=== PATIENT | male | born 1960 | race Caucasian/White ===

== ENCOUNTER 2018-10-15 06:25 | Emergency (ER) | payer BC, OTHER ==
[~2018-10-15] VITALS: Ht 170.2 cm; Wt 61.2 kg
[2018-10-15 06:30] VITALS: BP 145/103
[2018-10-15] MEDS: KETOROLAC 60 MG/2 ML VIAL IM ONE (07:07)
[2018-10-15] MEDS: DICYCLOMINE HCL LIQUID 20 MG, ALUMINUM HYD/MAG/SIMETHICONE 30 ML, LIDOCAINE VISCOUS 2% ... PO ONE ×3 (07:08)
[2018-10-15 08:10] LABS: BASOPHILS % (AUTO) 0.2 % (0.0-2.0); EOSINOPHILS # (AUTO) 0.2 K/uL (0-0.4); EOSINOPHILS % (AUTO) 1.2 % (0.0-4.0); HEMOGLOBIN 14.2 g/dL (12.0-18.0); LYMPHOCYTES # (AUTO) 1.5 K/uL (2.0-11.5); LYMPHOCYTES % (AUTO) 10.2 % (20.5-51.1); MEAN CORPUSCULAR HEMOGLOBIN 31 pg (27-31); MEAN CORPUSCULAR HGB CONC 33 g/dL (33-37); MEAN CORPUSCULAR VOLUME 94.6 fL (80-94); MONOCYTES # (AUTO) 0.8 K/uL (0.8-1.0); MONOCYTES % (AUTO) 5.7 % (1.7-9.3); NEUTROPHILS % (AUTO) 82.7 % (42.2-75.2); PLATELET COUNT (AUTO) 304 K/uL (140-450); RED BLOOD CELL COUNT(AUTO) 4.54 MIL/uL (4.20-6.10); RED CELL DISTRIBUTION WIDTH 13.9 % (11.6-13.7); WHITE BLOOD COUNT (AUTO) 14.5 K/uL (4.8-10.8)
[2018-10-15 08:25] LABS: ALBUMIN 3.6 g/dL (3.4-5.0); ANION GAP 12.5 (8-16); CARBON DIOXIDE 25.6 mmol/L (21-32); CREATININE 0.9 mg/dL (0.7-1.3); POTASSIUM 4.1 mmol/L (3.5-5.1); TOTAL BILIRUBIN 1.2 mg/dL (0.0-1.0)
[2018-10-15 09:32] VITALS: BP 116/83
[2018-10-15 09:58] LABS: APPEARANCE,URINE CLEAR (CLEAR); BILIRUBIN,URINE NEGATIVE (NEGATIVE); BLOOD, URINE NEGATIVE (NEGATIVE); COLOR,URINE YELLOW (YELLOW); LEUKOCYTE ESTERASE ,URINE NEGATIVE (NEGATIVE); NITRITE, URINE NEGATIVE (NEGATIVE); PH,URINE >=9.0 (5.0-9.0); UGLUCOSE NEGATIVE (NEGATIVE)
== END 2018-10-15 09:33 | disposition home or self-care (01) ==
LOC: MED 06:25
DX: R10.13 Epigastric pain (principal); G89.29 Other chronic pain; M54.9 Dorsalgia, unspecified; F17.200 Nicotine dependence, unspecified, uncomplicated
CPT/HCPCS: 36415; 74176; 80053; 81003; 82150; 83690; 85025; 96372; 99284; J1885

== ENCOUNTER 2019-03-26 09:28 | Inpatient (IN) | payer OTHER ==
[~2019-03-26] VITALS: Ht 167.6 cm; Wt 61.7 kg
[2019-03-26 09:31] VITALS: BP 121/103
--- NOTE | 2019-03-26 09:38 | NUR ---
PT AMBULATES BACK TO THE LOBBY
--- NOTE | 2019-03-26 09:44 | NUR ---
PT AMBULATED TO BED 2
--- NOTE | 2019-03-26 09:52 | NUR ---
PATIENT PRESENTS TO ED WITH C/O NAUSEA, VOMITING, FEVER AND EPIGASTRIC PAIN X TODAY. PATIENT STATES PAIN OF 10/10 AT THIS TIME; VSS; LBM 03/25/19. ORAL TEMP 98.1 AT THIS TIME. PATIENT POSITIONED FOR COMFORT; HOB ELEVATED; BEDRAILS UP X1; BED DOWN. PENDING ER MD EVALUATION.
[2019-03-26] MEDS ORDERED: NACL 0.9% 500 ML IV ONE (10:54)
[2019-03-26] MEDS ORDERED: ONDANSETRON 4 MG/2 ML VIAL IVP ONE (10:55)
[2019-03-26] MEDS ORDERED: KETOROLAC 30 MG/ML VIAL IVP ONE (10:55)
[2019-03-26 11:07] LABS: APPEARANCE,URINE CLEAR (CLEAR); BILIRUBIN,URINE NEGATIVE (NEGATIVE); BLOOD, URINE NEGATIVE (NEGATIVE); COLOR,URINE YELLOW (YELLOW); LEUKOCYTE ESTERASE ,URINE NEGATIVE (NEGATIVE); NITRITE, URINE NEGATIVE (NEGATIVE); UGLUCOSE NEGATIVE (NEGATIVE)
[2019-03-26 11:16] LABS: BASOPHILS % (AUTO) 0.2 % (0.0-2.0); EOSINOPHILS % (AUTO) 0.4 % (0.0-4.0); HEMATOCRIT 40.9 % (36-52); HEMOGLOBIN 13.8 g/dL (12.0-18.0); LYMPHOCYTES # (AUTO) 1.5 K/uL (2.0-11.5); LYMPHOCYTES % (AUTO) 12.2 % (20.5-51.1); MEAN CORPUSCULAR HEMOGLOBIN 32 pg (27-31); MEAN CORPUSCULAR HGB CONC 34 g/dL (33-37); MEAN CORPUSCULAR VOLUME 95.2 fL (80-94); MONOCYTES # (AUTO) 0.5 K/uL (0.8-1.0); NEUTROPHILS # (AUTO) 10.5 K/uL (1.8-7.7); NEUTROPHILS % (AUTO) 83.2 % (42.2-75.2); PLATELET COUNT (AUTO) 310 K/uL (140-450); RED BLOOD CELL COUNT(AUTO) 4.29 MIL/uL (4.20-6.10); RED CELL DISTRIBUTION WIDTH 13.5 % (11.6-13.7); WHITE BLOOD COUNT (AUTO) 12.6 K/uL (4.8-10.8)
[2019-03-26 11:22] LABS: ANION GAP 9.6 (8-16); CARBON DIOXIDE 29.7 mmol/L (21-32); CREATININE 0.9 mg/dL (0.7-1.3); POTASSIUM 3.3 mmol/L (3.5-5.1)
[2019-03-26 11:28] LABS: ALBUMIN 3.7 g/dL (3.4-5.0); TOTAL BILIRUBIN 0.6 mg/dL (0.0-1.0)
[2019-03-26] MEDS ORDERED: BACL10TA4 PO (12:40)
--- NOTE | 2019-03-26 12:42 | NUR ---
PT IS RESTING COMFORTABLY. DENIES ANY PAIN AT THIS TIME. PT IS PENDING ADMISSION. VSS.
[2019-03-26 13:00] VITALS: BP 105/78
[2019-03-26] MEDS ORDERED: MORPHINE SULFATE 4 MG/ML SYR IVP PRN (13:30)
[2019-03-26] MEDS ORDERED: ONDANSETRON 4 MG/2 ML VIAL IVP PRN (13:30)
[2019-03-26] MEDS ORDERED: LORazepam 2 MG/ML VIAL IVP PRN (13:30)
[2019-03-26] MEDS ORDERED: ACETAMINOPHEN 325 MG TAB PO PRN (13:30)
[2019-03-26] MEDS ORDERED: ALBUTEROL 0.083% 2.5 MG/3 ML NEBU INH PRN (13:30)
[2019-03-26] MEDS ORDERED: POTASSIUM CHL 40 MEQ/ D5-1/2NS 1,000 ML IV SCH (13:30)
[2019-03-26] MEDS ORDERED: DULO20EC PO (13:45)
--- NOTE | 2019-03-26 13:55 | NUR ---
RECEIVED PT FROM ED NURSE WAYNE. PT IS AWAKE AND ALERT, IN NO ACUTE DISTRESS, NO SOB. PT IS C/O MODERATE PAIN IN THE R RIB AREA; WILL MEDICATE SOON APPROPRIATE. PT IS ON ROOM AIR, SKIN IS INTACT. PT IS AMBULATORY. IV SITE IS ON THE R AC, 22 G, INFUSING NS 100 ML/HR. MRSA NARES SWABBED, WILL TAKE TO LAB. PT IS CURRENTLY NPO FOR AN UPCOMING HIDA SCAN. CALL LIGHT GIVEN WITHIN REACH. WILL CONTINUE TO MONITOR.
--- NOTE | 2019-03-26 14:02 | NUR ---
Patient admitted to care of Dr. Jackson . Admited to Telemetry. To room 106A. Belongings list completed. Report to MELVI Garza. Pt in stable condition.
--- NOTE | 2019-03-26 14:27 | NUR ---
TALKED WITH DR ZAMAN ON THE PHONE ABOUT NON-NARCOTIC PAIN MEDS FOR PT; DR ZAMAN ORDERED 30 MG IV TORADOL Q8H PRN. PT IS SCHEDULED TO HAVE A HIDA SCAN LATER THIS AFTERNOON, AND CANNOT HAVE ANY NARCOTIC ANALGESICS. PT IS CURRENTLY NPO FOR THE HIDA SCAN.
[2019-03-26] MEDS: KETOROLAC 30 MG/ML VIAL IVP PRN (15:08)
[2019-03-26] MEDS: PIPER/TAZO 3.375GM/D5W PREMIX 50 ML IV SCH ×2 (15:08→20:12)
--- NOTE | 2019-03-26 16:18 | NUR ---
PT TAKEN OFF UNIT TO HIDA SCAN.
--- NOTE | 2019-03-26 17:35 | NUR ---
PT IS BACK IN THE ROOM FROM THE HIDA SCAN.
--- NOTE | 2019-03-26 18:15 | NUR ---
DR MCNEILL NOTIFIED OF THE RESULTS OF PT'S HIDA SCAN PER HIS REQUEST. HE SAYS HE WILL CALL BACK AGAIN LATER.
--- NOTE | 2019-03-26 19:10 | NUR ---
PT ENDORSED TO OIL WELL CABLE TOOL OPERATOR NURSE IN STABLE CONDITION.
--- NOTE | 2019-03-26 19:11 | NUR ---
REPORT RECEIVED FROM AM NURSE AT BEDSIDE. PT IN STABLE CONDITION. AAOX4. INTRODUCED SELF TO PT. BOARD UPDATED. PT HAS COMPLAINTS OF 7/10 ABDOMINAL PAIN. WILL MEDICATE. NO SOB. AFEBRILE. IV SITE L AC 22G RUNNING D5 1/2NS WITH KCL 40MEQ@100ML/HR PATENT AND INTACT. SKIN WARM, DRY, AND INTACT WITH NO OPEN WOUNDS. PT IS AMBULATORY. BED LOCKED IN LOW POSITION. CALL [place] WITHIN REACH. SAFETY PRECAUTIONS IN PLACE. ALL NEEDS MET AT THIS TIME.
--- NOTE | 2019-03-26 19:28 | NUR ---
MORPHINE GIVEN FOR 7/10 ABDOMINAL PAIN. PT TOLERATED WELL.
[2019-03-26 20:00] VITALS: BP 108/79
[2019-03-26] MEDS ORDERED: PIPERACILLIN/TAZOBACTAM 3.375 GM in DEXTROSE 5% 50 ML IV SCH (21:00)
--- NOTE | 2019-03-26 22:10 | NUR ---
IGNACIA HUNG AT THIS TIME.
--- NOTE | 2019-03-26 22:30 | NUR ---
PT SITTING UP IN BED WATCHING TV. NO C/O DISCOMFORT. ALL NEEDS ATTENDED TO. WILL CONTINUE TO MONITOR.
[2019-03-27] VITALS: BP 91/60
--- NOTE | 2019-03-27 | NUR ---
DR. MCNEILL CALLED FOR INFORMATION ON PT STATUS AND LAB RESULTS. NOTIFIED OF RESULTS OF HIDA SCAN AND GALLBLADDER SCAN. HE SPOKE WITH THE PATIENT ABOUT HAVING A PROCEDURE ON THE GALLBLADDER. PT AGREED TO DR. MCNEILL'S SUGGESTION. WILL PUT IN NEW ORDERS.
--- NOTE | 2019-03-27 00:10 | NUR ---
CONSENT OBTAINED. TOLD PT DR. MCNEILL WILL BE IN TOMORROW TO EXPLAIN RISKS AND BENEFITS OF THE PROCEDURE.
[2019-03-27] MEDS: MORPHINE SULFATE 2 MG/ML SYR IVP PRN ×3 (01:13→19:08)
--- NOTE | 2019-03-27 01:13 | NUR ---
PT HAS 7/10 ABDOMINAL PAIN. MORPHINE GIVEN. PT BLOOD PRESSURE WAS 91/60. ONLY 2MG OF MORPHINE GIVEN INSTEAD OF 4MG DUE TO POSSIBILITY OF DECREASING BLOOD PRESSURE AND MAP. PT TOLERATED WELL. WILL CONTINUE TO MONITOR.
--- NOTE | 2019-03-27 03:10 | NUR ---
PT SLEEPING COMFORTABLY IN BED. NO S/S OF DISTRESS NOTED. RESPIRATIONS EVEN, UNLABORED, AND WNL. WILL CONTINUE TO MONITOR.
[2019-03-27 04:00] VITALS: BP 84/54
--- NOTE | 2019-03-27 04:00 | NUR ---
VITALS TAKEN. PT AWAKE IN BED, NO S/S OF DISTRESS. SAFETY PRECAUTIONS IN PLACE, CALL LIGHT WITHIN REACH. WILL CONTINUE TO MONITOR.
[2019-03-27 04:11] LABS: BASOPHILS % (AUTO) 0.4 % (0.0-2.0); EOSINOPHILS # (AUTO) 0.2 K/uL (0-0.4); EOSINOPHILS % (AUTO) 3.1 % (0.0-4.0); HEMOGLOBIN 12.8 g/dL (12.0-18.0); LYMPHOCYTES # (AUTO) 2.6 K/uL (2.0-11.5); LYMPHOCYTES % (AUTO) 38.1 % (20.5-51.1); MEAN CORPUSCULAR HEMOGLOBIN 32 pg (27-31); MEAN CORPUSCULAR HGB CONC 34 g/dL (33-37); MEAN CORPUSCULAR VOLUME 96.1 fL (80-94); MONOCYTES # (AUTO) 0.4 K/uL (0.8-1.0); MONOCYTES % (AUTO) 6.4 % (1.7-9.3); NEUTROPHILS # (AUTO) 3.6 K/uL (1.8-7.7); PLATELET COUNT (AUTO) 283 K/uL (140-450); RED BLOOD CELL COUNT(AUTO) 3.96 MIL/uL (4.20-6.10); RED CELL DISTRIBUTION WIDTH 13.7 % (11.6-13.7); WHITE BLOOD COUNT (AUTO) 6.8 K/uL (4.8-10.8)
[2019-03-27] MEDS: KETOROLAC 30 MG/ML VIAL IVP PRN (04:32)
--- NOTE | 2019-03-27 04:32 | NUR ---
TORADOL GIVEN FOR ABDOMINAL PAIN AT THIS TIME.
[2019-03-27 04:36] LABS: ALBUMIN 3.1 g/dL (3.4-5.0); ANION GAP 11.7 (8-16); CARBON DIOXIDE 25.2 mmol/L (21-32); CREATININE 0.9 mg/dL (0.7-1.3); MAGNESIUM 1.8 mg/dL (1.8-2.4); POTASSIUM 3.9 mmol/L (3.5-5.1); TOTAL BILIRUBIN 1.3 mg/dL (0.0-1.0)
[2019-03-27] MEDS: PIPER/TAZO 3.375GM/D5W PREMIX 50 ML IV SCH ×3 (05:11→21:12)
--- NOTE | 2019-03-27 05:11 | NUR ---
IGNACIA HUNG AT THIS TIME.
--- NOTE | 2019-03-27 06:50 | NUR ---
PT WENT TO RADIOLOGY FOR CT OF ABD/PELVIS AND CXR.
--- NOTE | 2019-03-27 07:00 | NUR ---
PT RETURNED TO THE FLOOR.
--- NOTE | 2019-03-27 07:19 | NUR ---
REPORT GIVEN TO AM NURSE AT BEDSIDE. PT IN STABLE CONDITION.
--- NOTE | 2019-03-27 07:20 | NUR ---
RECEIVED ENDORSEMENT FROM HEEL SEAT FITTER MACHINE NURSE. PT IS AAOX4. RESPIRATIONS ARE EVEN AND UNLABORED ON ROOM AIR. LEFT AC IV IS INTACT, PATENT, AND INFUSING IVF. PT DENIES ANY PAIN AT THIS TIME. PLAN OF CARE WAS REVIEWED WITH PT. PT VERBALIZED UNDERSTANDING. SAFETY MEASURES IN PLACE, CALL LIGHT WITHIN REACH. WILL CONTINUE TO MONITOR.
[2019-03-27 07:55] LABS: PROTHROMBIN TIME 9.9 secs (10.8-13.4)
[2019-03-27 08:00] VITALS: BP 85/50
--- NOTE | 2019-03-27 08:09 | NUR ---
PATIENT HAS BEEN SCREENED AND CATEGORIZED LOW NUTRITION RISK. PATIENT WILL BE SEEN WITHIN 7 DAYS OF ADMISSION. 04/02/[address]
[2019-03-27] MEDS: ENOXAPARIN 40 MG/0.4 ML SYR SUBQ SCH (08:40)
--- NOTE | 2019-03-27 08:40 | NUR ---
ENOXAPARIN WAS HELD. PATIENT SCHEDULED FOR SURGERY TODAY.
[2019-03-27] MEDS ORDERED: NACL 0.9% 1,000 ML IV SCH (09:00)
--- NOTE | 2019-03-27 09:10 | NUR ---
ADMINISTERED NS FLUID BOLUS PER MD ORDER FOR BP OF 85/50 HR OF 56. PATIENT C/O 8/10 PAIN TO ABDOMINAL AREA. ADMINISTERED PRN MORPHINE IVP. PATIENT STATED FEELING IMMEDIATE RELIEF. WILL CONTINUE TO MONITOR.
--- NOTE | 2019-03-27 11:46 | NUR ---
FOLLOW UP APPOINTMENT FOR PATIENT: [facility] MD: OSMAN GELLER ADDRESS: [id number] [place] [address] PHONE: APPOINTMENT DATE AND TIME: 04/01/2019 AT 10AM Addendum: 03/27/19 at 1618 by Antoinette Carrera CM ATTEMPTED TO MEET WITH PATIENT AT BEDSIDE, HOWEVER PATIENT IS CURRENTLY AT OPERATING ROOM. CM GAVE PATIENT'S NURSE ( TODD) PATIENT's FOLLOW UP APPOINTMENT WITH PCP. PATIENT's NURSE STATED HE WILL GIVE THE APPOINTMENT TO THE PATIENT WHEN HE RETURNS BACK FROM SURGERY.
--- NOTE | 2019-03-27 11:50 | NUR ---
PATIENT RESTING IN BED. NO SIGNS OF DISTRESS NOTED. DENIES ANY PAIN AT THIS TIME. WILL CONTINUE TO MONITOR.
[2019-03-27 12:00] VITALS: BP 83/58
--- NOTE | 2019-03-27 14:10 | NUR ---
PATIENT SLEEPING, EASILY AROUSABLE. DENIES PAIN AT THIS TIME. WILL CONTINUE TO MONITOR.
[2019-03-27 16:00] VITALS: BP 102/72
--- NOTE | 2019-03-27 16:01 | NUR ---
OR NURSES ON UNIT READY TO TAKE PATIENT DOWN FOR CHOLECYSTECTOMY. WILL CONTINUE TO MONITOR WHEN PATIENT RETURNS ON UNIT.
[2019-03-27] MEDS ORDERED: BUPIVACAINE-MPF/EPI 0.25% 30 ML VIAL INJ ONE (16:20)
[2019-03-27] MEDS ORDERED: SUCCINYLCHOLINE CHLORIDE 200 MG/10 ML VIAL IVP ONE (16:22)
[2019-03-27] MEDS ORDERED: NEOSTIGMINE 1:1000 10 MG/10 ML VIAL ONE (16:22)
[2019-03-27] MEDS ORDERED: ONDANSETRON 4 MG/2 ML VIAL ONE (16:22)
[2019-03-27] MEDS ORDERED: ROCURONIUM 50 MG/5 ML VIAL IV ONE (16:22)
[2019-03-27] MEDS ORDERED: PROPOFOL 200 MG/20 ML VIAL IV ONE (16:22)
[2019-03-27] MEDS ORDERED: DESFLURANE 240 ML BTL INH ONE (16:22)
[2019-03-27] MEDS ORDERED: GLYCOPYRROLATE 0.2 MG/ML VIAL ONE (16:22)
[2019-03-27] MEDS ORDERED: KETOROLAC 30 MG/ML VIAL ONE (16:22)
[2019-03-27] MEDS ORDERED: DEXAMETHASONE 4 MG/ML VIAL ONE (16:22)
[2019-03-27] MEDS ORDERED: fentaNYL 0.05 MG/ML VIAL ONE (16:33)
[2019-03-27] MEDS ORDERED: HYDROmorphone PFS 2 MG/ML SYR ONE (16:33)
[2019-03-27] MEDS ORDERED: ceFAZolin 1,000 MG VIAL ONE (16:37)
[2019-03-27] MEDS ORDERED: ONDANSETRON 4 MG/2 ML VIAL IVP PRN (16:50)
[2019-03-27] MEDS ORDERED: HYDROmorphone 1 MG/ML AMP IVP PRN (16:50)
[2019-03-27 18:30] VITALS: BP 96/65
--- NOTE | 2019-03-27 18:30 | NUR ---
PATIENT BACK ON MST UNIT FROM OR. NO DISTRESS NOTED. V/S STABLE. WILL CONTINUE TO MONITOR.
--- NOTE | 2019-03-27 19:30 | NUR ---
GAVE ENDORSEMENT TO LIGHT RAIL SIGNAL TECHNICIAN NURSE. PATIENT IS STABLE.
--- NOTE | 2019-03-27 19:31 | NUR ---
RECEIVED BEDSIDE REPORT FROM NOEL BROOKS. PT A/O X4. ABLE TO MAKE NEEDS KNOWN. ROOM AIR. NO SIGNS OF DISTRESS. AMBULATES. STEADY GAIT. 4 INCISIONS DRESSINGS CLEAN, DRY, INTACT, NO DRAINAGE NOTED. L AC 22G. NOT CURRENTLY RUNNING ANYTHING. CLEAR LIQUID DIET. ALLERGY BAND TO PEACHES-FOOD. BED IN LOW POSITION. CALL LIGHT WITHIN REACH.
--- NOTE | 2019-03-27 20:00 | NUR ---
LUCIA GOLD (SISTER) CALLED TO ASK IF PT WAS BACK FROM SURGERY.
--- NOTE | 2019-03-27 21:18 | NUR ---
ADMINISTERED MEDS SCHEDULED. ZOSYN @100ML/HR. FLUSHED LINE WHEN CONNECTED. TOLERATED WELL. NO COMPLAINTS. WATCHING TV. WILL CONTINUE TO MONITOR.
--- NOTE | 2019-03-27 23:00 | NUR ---
PT SLEEPING IN BED EASILY AROUSABLE. BED IN LOW POSITION. CALL LIGHT WITHIN REACH. NO COMPLAINTS AT THIS TIME. WILL CONTINUE TO MONITOR.
[2019-03-28] MEDS: MORPHINE SULFATE 2 MG/ML SYR IVP PRN (00:08)
--- NOTE | 2019-03-28 00:08 | NUR ---
PAIN AT 8/10 ON ADULT SCALE. MORPHINE 2MG PRN GIVEN. FLUSHED WITH NS. WILL REASSESS AND CONTINUE TO MONITOR.
--- NOTE | 2019-03-28 01:45 | NUR ---
PT COMPLAINS OF NAUSEA. EDUCATED ON SIDE EFFECTS. VERBALIZED UNDERSTANDING. ZOFRAN 4MG GIVEN. WILL CONTINUE TO MONITOR.
[2019-03-28 04:00] VITALS: BP 98/60
--- NOTE | 2019-03-28 04:00 | NUR ---
PT AWAKE IN BED. VITALS TAKEN TOLERATED WELL. NO PAIN OR DISCOMFORT NOTED AT THIS MOMENT. WILL CONTINUE TO MONITOR.
[2019-03-28] MEDS: PIPER/TAZO 3.375GM/D5W PREMIX 50 ML IV SCH (04:51)
[2019-03-28 06:42] LABS: HEMATOCRIT 38.7 % (36-52); HEMOGLOBIN 13.1 g/dL (12.0-18.0); MEAN CORPUSCULAR HEMOGLOBIN 32 pg (27-31); MEAN CORPUSCULAR HGB CONC 34 g/dL (33-37); MEAN CORPUSCULAR VOLUME 95.6 fL (80-94); PLATELET COUNT (AUTO) 290 K/uL (140-450); RED BLOOD CELL COUNT(AUTO) 4.05 MIL/uL (4.20-6.10); RED CELL DISTRIBUTION WIDTH 13.4 % (11.6-13.7); WHITE BLOOD COUNT (AUTO) 9.4 K/uL (4.8-10.8)
[2019-03-28 06:43] LABS: ALBUMIN 3.1 g/dL (3.4-5.0); ANION GAP 12.6 (8-16); CARBON DIOXIDE 25.7 mmol/L (21-32); CREATININE 0.9 mg/dL (0.7-1.3); POTASSIUM 4.3 mmol/L (3.5-5.1); TOTAL BILIRUBIN 1.3 mg/dL (0.0-1.0)
--- NOTE | 2019-03-28 07:10 | NUR ---
ENDORSED PT TO DAYSHIFT MELVI ESTES. PT IN STABLE CONDITION.
--- NOTE | 2019-03-28 07:15 | NUR ---
RECEIVED HAND OFF REPORT FROM INBOUND SALES ADVISOR NURSE PT IS AWAKE IN BED PT APPEARS STABLE AND IN NO APPARENT DISTRESS. IVF IS INFUSING IV SITE IS PATENT WITH NO SIGNS OF INFILTRATION OR INFLAMMATION. ALL SAFETY MEASURES ARE IN PLACE. WILL CONTINUE TO MONITOR.
[2019-03-28 07:40] LABS: LYMPHOCYTES % (MANUAL) 15 % (20-46); MONOCYTES % (MANUAL) 3 % (5-12)
[2019-03-28 08:20] VITALS: BP 101/65
[2019-03-28] MEDS: KETOROLAC 30 MG/ML VIAL IVP PRN (08:50)
[2019-03-28] MEDS: ENOXAPARIN 40 MG/0.4 ML SYR SUBQ SCH (08:51)
--- NOTE | 2019-03-28 09:15 | NUR ---
FREQUENT ROUNDING ON PATIENT PT IS STABLE AND IN NO APPARENT DISTRESS. ALL SAFETY MEASURES ARE IN PLACE WILL CONTINUE TO MONITOR.
--- NOTE | 2019-03-28 11:35 | NUR ---
FREQUENT ROUNDING ON PT PT IS STABLE AND IN NO APPARENT DISTRESS, ALL SAFETY MEASURES ARE IN PLACE WILL CONTINUE TO MONITOR. PT IS AWARE OF DISCHARGE PLANS AND HAS MADE ARRANGEMENTS.
--- NOTE | 2019-03-28 13:20 | NUR ---
FREQUENT ROUNDING ON PATIENT PT IS AWAKE IN BED PT IS STABLE AND IN NO APPARENT DISTRESS. ALL SAFETY MEASURES ARE IN PLACE WILL CONTINUE TO MONITOR.
[2019-03-28 13:34] VITALS: BP 101/65
[2019-03-28] MEDS ORDERED: HYDR-5122 PO (13:49)
--- NOTE | 2019-03-28 14:16 | NUR ---
REMOVED PT ID BAND. REMOVED IV. IV CATH TIP INTACT. TOOK PICTURES OF SURGICAL WOUNDS. PROVIDED INFORMATION ON PROPER WOUND CARE FOR SURGICAL INCISION PROVIDED INFORMATION ON DIET. PATIENT SIGNED ALL DISCHARGE PAPERS AND HAD ALL QUESTIONS ANSWERED. PATIENT AMBULATED OFF UNIT WITH STEADY GAIT PT IS STABLE AND IN NO APPARENT DISTRESS. PT WAS ESCORTED OUT BY FRIEND. PT LEFT WITH ALL PERSONAL BELONGINGS.
== END 2019-03-28 14:12 | disposition home or self-care (01) | DRG 263 ==
LOC: MED 09:28 → MTU 13:32
PROVIDERS: ADMIT Internal Medicine Pulmonary Disease; ATTEND Internal Medicine Pulmonary Disease
PROC: 0FT44ZZ Resection of Gallbladder, Percutaneous Endoscopic Approach (ICD-10-PCS; principal; 2019-03-27 17:18)
DX: K80.12 Calculus of gallbladder with acute and chronic cholecystitis without obstruction (principal); G89.29 Other chronic pain; K21.9 Gastro-esophageal reflux disease without esophagitis; M54.5 Low back pain; Z91.018 Allergy to other foods; Z79.899 Other long term (current) drug therapy
CPT/HCPCS: 36415; 71045; 76705; 78445; 80053; 81003; 82374; 83690; 83735; 85025; 85610; 85730; 86886; 86900; 86901; 87081; 88304; 93005; 96361; 96374; 96375; 99285; A9510; C1758; J0330; J0690; J1100; J1170; J1650; J1885; J2270; J2405; J2543; J2704; J2710; J3010; J3490; J7030; Q0092

== ENCOUNTER 2020-06-14 16:47 | Emergency (ER) | payer OTHER ==
[~2020-06-14] VITALS: Ht 167.6 cm; Wt 59.0 kg
[~2020-06-14 16:47] MED LIST: BACL10TA4 PO; DULO20EC PO; HYDR-5122 PO
[2020-06-14 16:53] VITALS: BP 111/69
--- NOTE | 2020-06-14 16:53 | NUR ---
PATIENT AMBULATED TO BED 12.
[2020-06-14] MEDS ORDERED: LIDOCAINE 2% 1000 MG/50 ML VIAL INJ ONE (16:55)
[2020-06-14] MEDS ORDERED: ACETAMINOPHEN EXTRA STRENGTH 500 MG TAB PO ONE (17:05)
--- NOTE | 2020-06-14 17:10 | NUR ---
C/O laceration to L hand below thumb, and to tip of thumb. Pt states he was using a silk screen cutter earlier today when he cut his hand, bleeding controlled at this time. Date of last TDAP unk, pt states "over 10 years". bed in low position, side rail up x1
--- NOTE | 2020-06-14 17:16 | NUR ---
WILNER Sapp at bedside suturing pt
[2020-06-14 17:51] VITALS: BP 111/69
[2020-06-14] MEDS ORDERED: BACITRACIN OINT 500 UNITS/GM PKT TP ONE (17:52)
[2020-06-14] MEDS ORDERED: BACITRACIN OP OINT 500 UNITS/GM 3.5 GM TUBE OP SCH (17:55)
== END 2020-06-14 17:52 | disposition home or self-care (01) ==
LOC: MED 16:47
DX: S61.412A Laceration without foreign body of left hand, initial encounter (principal); S60.311A Abrasion of right thumb, initial encounter; Z91.018 Allergy to other foods; Z98.890 Other specified postprocedural states; Z79.899 Other long term (current) drug therapy; W45.8XXA Other foreign body or object entering through skin, initial encounter; Y93.89 Activity, other specified; Y92.098 Other place in other non-institutional residence as the place of occurrence of the external cause; Y99.8 Other external cause status
CPT/HCPCS: 12002; 90471; 90715; 99283; J2001

== ENCOUNTER 2022-09-24 04:40 | Emergency (ER) | payer OTHER ==
[~2022-09-24] VITALS: Ht 167.6 cm; Wt 59.0 kg
--- NOTE | 2022-09-24 04:40 | NUR ---
BIBA TAKEN TO BED #7
[2022-09-24 04:42] VITALS: BP 122/79
--- NOTE | 2022-09-24 05:09 | NUR ---
62YR OLD MALE BIB EMS C/O MID BACK PAIN X3DAYS. PT WAS FIXING GARAGE DOOR 3 DAYS AGO WHEN PAIN STARTED. RADIATES TO MID ABD. HX OF LUMBAR FUSION IN 2009. SHARP 10/10 PAIN WITH MOVEMENT. DENIES CP OR SOB. PT IS A&OX4 . BED AT LOWEST POSITION. SIDE RAILS UP X2 NKDA LUMBAR FUSION GALLBLADDER
--- NOTE | 2022-09-24 05:12 | NUR ---
Patient being evaluated by physician at bedside.
[2022-09-24] MEDS ORDERED: MORPHINE SULFATE 4 MG/ML SYR IVP ONE (05:15)
[2022-09-24] MEDS ORDERED: KETOROLAC 30 MG/ML VIAL IVP ONE (05:15)
[2022-09-24] MEDS ORDERED: NAPR-54 PO (06:02)
[2022-09-24 06:51] VITALS: BP 122/79
--- NOTE | 2022-09-24 06:51 | NUR ---
Patient discharged with v/s stable. Written and verbal after care instructions given and explained. Patient alert, oriented and verbalized understanding of instructions. Ambulatory with steady gait. All questions addressed prior to discharge. ID band removed. Patient advised to follow up with PMD. Rx of NAPROSYN given.
== END 2022-09-24 06:51 | disposition home or self-care (01) ==
LOC: MED 04:40
DX: S33.5XXA Sprain of ligaments of lumbar spine, initial encounter (principal); Z98.890 Other specified postprocedural states; X58.XXXA Exposure to other specified factors, initial encounter; Y93.89 Activity, other specified; Y92.89 Other specified places as the place of occurrence of the external cause; Y99.8 Other external cause status
CPT/HCPCS: 72110; 96374; 96375; 99284; J1885; J2270

== ENCOUNTER 2023-07-08 12:09 | Emergency (ER) | payer OTHER ==
[~2023-07-08] VITALS: Ht 167.6 cm; Wt 59.0 kg
[~2023-07-08 12:09] MED LIST changes: +NAPR-54 PO
[2023-07-08 12:45] VITALS: BP 107/76; PULSE 81; RESP 18; TEMP 98.2; O2SAT 97
[2023-07-08] MEDS ORDERED: CILOS RIGHT EYE (13:15)
== END 2023-07-08 13:24 | disposition home or self-care (01) ==
LOC: MED 12:09
DX: H10.89 Other conjunctivitis (principal); B96.89 Other specified bacterial agents as the cause of diseases classified elsewhere; Z79.899 Other long term (current) drug therapy
CPT/HCPCS: 99283

== ENCOUNTER 2024-02-22 08:21 | Emergency (ER) | payer OTHER ==
[~2024-02-22] VITALS: Ht 167.6 cm; Wt 58.1 kg
[~2024-02-22 08:21] MED LIST changes: +CILOS RIGHT EYE; +NAPR-337 PO; -NAPR-54 PO
[2024-02-22 08:51] VITALS: BP 96/72; PULSE 80; RESP 20; TEMP 97.9; O2SAT 97
[2024-02-22] MEDS ORDERED: DOXY-690 PO (10:50)
[2024-02-22 11:00] LABS: APPEARANCE,URINE CLEAR (CLEAR); BILIRUBIN,URINE NEGATIVE (NEGATIVE); BLOOD, URINE TRACE-I (NEGATIVE); COLOR,URINE YELLOW (YELLOW); LEUKOCYTE ESTERASE ,URINE NEGATIVE (NEGATIVE); NITRITE, URINE NEGATIVE (NEGATIVE); PROTEIN,URINE NEGATIVE (NEGATIVE); UGLUCOSE NEGATIVE (NEGATIVE)
[2024-02-22] MEDS ORDERED: LIDOCAINE MPF 1% 5 ML ONE (11:01)
[2024-02-22] MEDS ORDERED: cefTRIAXone 500 MG VIAL ONE (11:01)
[2024-02-22] MEDS: cefTRIAXone 500 MG in LIDOCAINE MPF 1% 1 ML IM ONE (11:10)
== END 2024-02-22 11:10 | disposition home or self-care (01) ==
LOC: MED 08:21
DX: Z00.8 Encounter for other general examination (principal); Z79.899 Other long term (current) drug therapy
CPT/HCPCS: 81003; 87491; 96372; 99283; J0696; J2001